=== PATIENT | male | born 1950 | race African-American/Black ===

== ENCOUNTER 2018-04-30 09:04 | Observation (INO) ==
[2018-04-30] MEDS ORDERED: Morphine Inj 4 MG/ML Vial IV.PUSH ONE ×2 (09:47→13:06)
--- NOTE | 2018-04-30 09:49 | ED ---
HPI General Chief Complaint: Chest Pain Stated Complaint: Chest Pain Time Seen by Provider: 04/30/18 09:47 Source: patient Mode of arrival: ambulatory Limitations: no limitations History of Present Illness HPI narrative: Patient comes in complaining of a 3-hour onset of chest pressure substernal radiating towards his left arm and left jaw, originally a 6 out of 10 , currently a [address] bingham is pcp wastewater manager is dr morales patient had ascenting aneurysm and aortic valve replacement done at [facility] Related Data Home Medications Medication Instructions Recorded Confirmed alprazolam 0.25 mg PO BID PRN 02/14/18 04/30/18 amlodipine 5 mg PO BID 02/14/18 04/30/18 aspirin 81 mg PO DAILY 02/14/18 04/30/18 cholecalciferol (vitamin D3) 1,000 unit PO DAILY 02/14/18 04/30/18 [Vitamin D3] olmesartan 40 mg PO DAILY 02/14/18 04/30/18 potassium chloride 20 meq PO DAILY 02/14/18 04/30/18 escitalopram oxalate [Lexapro] 5 mg PO DAILY 04/30/18 04/30/18 Allergies Allergy/AdvReac Type Severity Reaction Status Date / Time penicillin G Allergy Severe Rash Unverified 02/14/18 20:07 Beta-Blockers Allergy Bradycardia Verified 04/30/18 09:47 (Beta-Adrenergic Bloc sulfamethoxazole Allergy Rash Verified 02/14/18 20:07 [From Bactrim] trimethoprim [From Bactrim] Allergy Rash Verified 02/14/18 20:07 Review of Systems ROS: all other systems reviewed are negative [facility] Medical History Medical History Ascending aortic aneurysm (Acute) Hypertension (Acute) Surgical History Surgical History History of aortic valve replacement (Acute) History of prior ablation treatment (Acute) Social History Social History Substance History: No History of Abuse Second Hand Smoke Exposure: No Smoking Status: Never smoker How Often Do You Have a Drink Containing Alcohol: 2 to 4 times a month Recent Travel in [facility] within the Last 8 Weeks: No Recent Out of Country Travel within the Last 8 Weeks: No Immunization History Tetanus Immunization: Unsure Exam Narrative Exam Narrative: GENERAL: Elderly -[place] male in no apparent distress. SKIN: Warm and dry. HEAD: Atraumatic. Normocephalic. EYES: Pupils equal and round. No scleral icterus. No injection or drainage. ENT: No nasal bleeding or discharge. Mucous membranes pink and moist. NECK: Trachea midline. No JVD. CARDIOVASCULAR: Regular rate and rhythm. no rubs or gallops RESPIRATORY: No accessory muscle use. Clear to auscultation. Breath sounds equal bilaterally. GASTROINTESTINAL: Abdomen soft, non-tender, nondistended. No rebound or guarding MUSCULOSKELETAL: Extremities without clubbing, cyanosis, or edema. No obvious deformities. NEUROLOGICAL: Awake and alert. No obvious cranial nerve deficits. Motor grossly within normal limits. Five out of 5 muscle strength in the arms and legs. Normal speech. PSYCHIATRIC: Appropriate mood and affect; insight and judgment normal. Course Initial Documented Vital Signs Temperature 98.4 F 04/30/18 09:25 Pulse Rate 71 04/30/18 09:25 Respiratory Rate 16 04/30/18 09:25 Blood Pressure 185/90 H 04/30/18 09:25 Pulse Oximetry 96 04/30/18 09:25 Last Documented Vital Signs Temperature 98.2 F 05/01/18 08:00 Pulse Rate 57 L 05/01/18 08:00 Respiratory Rate 18 05/01/18 08:00 Blood Pressure 158/82 H 05/01/18 08:00 Pulse Oximetry 95 05/01/18 08:00 Medical Decision Making MDM Narrative Medical decision making narrative: CBC does not show any evidence of any anemia or leukocytosis or left shift. There is mild transient thrombocytopenia 129,000 Coagulation profile is within normal limits Electrolytes are within normal limits. Normal kidney liver and pancreatic functions First set of cardiac enzymes negative, normal beta natruretic peptide UA is negative for UTI Medical Screen Exam Complete: Yes Emergency Medical Condition: Yes Lab Data Lab results reviewed: Yes I reviewed the patient's lab results. Result diagrams: 04/30/18 10:00 04/30/18 10:00 Lab Results 04/30/18 04/30/18 04/30/18 Range/Units 10:00 10:00 10:00 WBC 3.6 L (4.0-11.0) th/mm3 RBC 4.47 L (4.50-5.90) mil/mm3 Hgb 13.8 (13.0-17.0) gm/dL Hct 40.4 (39.0-51.0) % MCV 90.4 (80.0-100.0) fL MCH 30.9 (27.0-34.0) pg MCHC 34.1 (32.0-36.0) % RDW 13.8 (11.6-17.2) % Plt Count 129 L (150-450) th/mm3 MPV 8.5 (7.0-11.0) fL Neut % (Auto) 28.1 (16.0-70.0) % Lymph % (Auto) 60.2 H (9.0-44.0) % Amelia % (Auto) 5.9 (0.0-8.0) % Eos % (Auto) 5.3 H (0.0-4.0) % Baso % (Auto) 0.5 (0.0-2.0) % Neut # (Auto) 1.0 L (1.8-7.7) th/mm3 Lymph # (Auto) 2.1 (1.0-4.8) th/mm3 Amelia # (Auto) 0.2 (0.0-0.9) th/mm3 Eos # (Auto) 0.2 (0.0-0.4) th/mm3 Baso # (Auto) 0.0 (0.0-0.2) th/mm3 WBC Differential . Differential Comment Auto diff final PT 10.3 (9.8-11.6) sec INR 1.0 Ratio APTT 28.9 (23.4-31.7) sec Sodium 142 (136-145) meq/L Potassium 3.7 (3.5-5.1) meq/L Chloride 108 H (98-107) meq/L Carbon Dioxide 28.7 (21.0-32.0) meq/L Anion Gap 5 (5-15) meq/L BUN 16 (7-18) mg/dL Creatinine 0.85 (0.60-1.30) mg/dL Estimated GFR Greater than 89 (>89) mL/min Random Glucose 95 (74-106) mg/dL Calcium 8.5 (8.5-10.1) mg/dL Total Bilirubin 0.6 (0.2-1.0) mg/dL AST 18 (15-37) U/L ALT 20 (12-78) U/L Alkaline Phosphatase 62 (45-117) U/L Total Creatine Kinase 117 (39-308) U/L CK-MB (CK-2) 1.4 (0.5-3.6) ng/mL Troponin I Less than 0.02 L (0.02-0.05) ng/mL B-Natriuretic Peptide (0-100) pg/mL Total Protein 8.2 (6.4-8.2) g/dL Albumin 4.3 (3.4-5.0) g/dL Lipase 141 (73-393) U/L Urine Color (Yellw/Straw) Urine Clarity (Clear) Urine pH (5.0-8.5) Ur Specific [place] (1.002-1.035) Urine Protein (Neg-Trace) mg/dL Urine Glucose (UA) (Negative) mg/dL Urine Ketones (Negative) mg/dL Urine Occult Blood (Negative) Urine Nitrate (Negative) Urine Bilirubin (Negative) Urine Urobilinogen (Less than 2) mg/dL Ur Leukocyte Esterase (Negative) Urine RBC (0-3) /hpf Urine WBC (0-5) /hpf Micro UA Comment Ur Microscopic Review Urine Culture Comments 04/30/18 04/30/18 04/30/18 Range/Units 10:00 10:00 14:27 WBC (4.0-11.0) th/mm3 RBC (4.50-5.90) mil/mm3 Hgb (13.0-17.0) gm/dL Hct (39.0-51.0) % MCV (80.0-100.0) fL MCH (27.0-34.0) pg MCHC (32.0-36.0) % RDW (11.6-17.2) % Plt Count (150-450) th/mm3 MPV (7.0-11.0) fL Neut % (Auto) (16.0-70.0) % Lymph % (Auto) (9.0-44.0) % Amelia % (Auto) (0.0-8.0) % Eos % (Auto) (0.0-4.0) % Baso % (Auto) (0.0-2.0) % Neut # (Auto) (1.8-7.7) th/mm3 Lymph # (Auto) (1.0-4.8) th/mm3 Amelia # (Auto) (0.0-0.9) th/mm3 Eos # (Auto) (0.0-0.4) th/mm3 Baso # (Auto) (0.0-0.2) th/mm3 WBC Differential Differential Comment PT (9.8-11.6) sec INR Ratio APTT (23.4-31.7) sec Sodium (136-145) meq/L Potassium (3.5-5.1) meq/L Chloride (98-107) meq/L Carbon Dioxide (21.0-32.0) meq/L Anion Gap (5-15) meq/L BUN (7-18) mg/dL Creatinine (0.60-1.30) mg/dL Estimated GFR (>89) mL/min Random Glucose (74-106) mg/dL Calcium (8.5-10.1) mg/dL Total Bilirubin (0.2-1.0) mg/dL AST (15-37) U/L ALT (12-78) U/L Alkaline Phosphatase (45-117) U/L Total Creatine Kinase 96 (39-308) U/L CK-MB (CK-2) (0.5-3.6) ng/mL Troponin I Less than 0.02 L (0.02-0.05) ng/mL B-Natriuretic Peptide 64 (0-100) pg/mL Total Protein (6.4-8.2) g/dL Albumin (3.4-5.0) g/dL Lipase (73-393) U/L Urine Color Yellow (Yellw/Straw) Urine Clarity Clear (Clear) Urine pH 7.0 (5.0-8.5) Ur Specific [place] 1.009 (1.002-1.035) Urine Protein Negative (Neg-Trace) mg/dL Urine Glucose (UA) 50 (Negative) mg/dL Urine Ketones Negative (Negative) mg/dL Urine Occult Blood Negative (Negative) Urine Nitrate Negative (Negative) Urine Bilirubin Negative (Negative) Urine Urobilinogen Less than 2 (Less than 2) mg/dL Ur Leukocyte Esterase Negative (Negative) Urine RBC 2 (0-3) /hpf Urine WBC 1 (0-5) /hpf Micro UA Comment Culture not ind Ur Microscopic Review Not Reportable Urine Culture Comments Culture not ind 04/30/18 Range/Units 17:49 WBC (4.0-11.0) th/mm3 RBC (4.50-5.90) mil/mm3 Hgb (13.0-17.0) gm/dL Hct (39.0-51.0) % MCV (80.0-100.0) fL MCH (27.0-34.0) pg MCHC (32.0-36.0) % RDW (11.6-17.2) % Plt Count (150-450) th/mm3 MPV (7.0-11.0) fL Neut % (Auto) (16.0-70.0) % Lymph % (Auto) (9.0-44.0) % Amelia % (Auto) (0.0-8.0) % Eos % (Auto) (0.0-4.0) % Baso % (Auto) (0.0-2.0) % Neut # (Auto) (1.8-7.7) th/mm3 Lymph # (Auto) (1.0-4.8) th/mm3 Amelia # (Auto) (0.0-0.9) th/mm3 Eos # (Auto) (0.0-0.4) th/mm3 Baso # (Auto) (0.0-0.2) th/mm3 WBC Differential Differential Comment PT (9.8-11.6) sec INR Ratio APTT (23.4-31.7) sec Sodium (136-145) meq/L Potassium (3.5-5.1) meq/L Chloride (98-107) meq/L Carbon Dioxide (21.0-32.0) meq/L Anion Gap (5-15) meq/L BUN (7-18) mg/dL Creatinine (0.60-1.30) mg/dL Estimated GFR (>89) mL/min Random Glucose (74-106) mg/dL Calcium (8.5-10.1) mg/dL Total Bilirubin (0.2-1.0) mg/dL AST (15-37) U/L ALT (12-78) U/L Alkaline Phosphatase (45-117) U/L Total Creatine Kinase 94 (39-308) U/L CK-MB (CK-2) (0.5-3.6) ng/mL Troponin I Less than 0.02 L (0.02-0.05) ng/mL B-Natriuretic Peptide (0-100) pg/mL Total Protein (6.4-8.2) g/dL Albumin (3.4-5.0) g/dL Lipase (73-393) U/L Urine Color (Yellw/Straw) Urine Clarity (Clear) Urine pH (5.0-8.5) Ur Specific [place] (1.002-1.035) Urine Protein (Neg-Trace) mg/dL Urine Glucose (UA) (Negative) mg/dL Urine Ketones (Negative) mg/dL Urine Occult Blood (Negative) Urine Nitrate (Negative) Urine Bilirubin (Negative) Urine Urobilinogen (Less than 2) mg/dL Ur Leukocyte Esterase (Negative) Urine RBC (0-3) /hpf Urine WBC (0-5) /hpf Micro UA Comment Ur Microscopic Review Urine Culture Comments Imaging Data Attestation: I personally reviewed and interpreted this imaging study as follows : Radiologist's impression: Chest X-Ray 04/30/18 09:47 CONCLUSION: 1. Cardiomegaly. 2. Minimal bibasilar atelectasis/or mild infiltrates. Myocardial Perfusion Scan Nuc Med 05/01/18 00:00 CONCLUSION: 1. Septal hypokinesis and left ventricular ejection fraction calculated at 44%. 2. No fixed or reversible defects to suggest infarct or ischemia. Discharge Plan Discharge Disposition Patient Disposition: ED Admit(ED Internal Use Only) Discharge Condition Condition: Stable Discharge Order Discharge Orders: Discharge Order (Routine); Ordered 05/01/18 Ordered By: Jewels Fonseca ED Use Only Admit Order (Routine); Ordered 04/30/18 Ordered By: Satish Randall Discharge Details Diagnosis: Chest pain, rule out acute myocardial infarction Physicians Team ED Provider: Satish Randall Primary Care Provider: Nicholas Bingham Attending Provider: Salud Torres ED Status: Left Department Discharge Information Discharge Date/Time: 04/30/18 16:01
[2018-04-30 10:23] LABS: Baso % (Auto) 0.5 % (0.0-2.0); Eos # (Auto) 0.2 th/mm3 (0.0-0.4); Eos % (Auto) 5.3 % (0.0-4.0); Hematocrit 40.4 % (39.0-51.0); Hemoglobin 13.8 gm/dL (13.0-17.0); Lymph # (Auto) 2.1 th/mm3 (1.0-4.8); Lymph % (Auto) 60.2 % (9.0-44.0); Mean Corpuscular HGB Conc 34.1 % (32.0-36.0); Mean Corpuscular Hemoglobin 30.9 pg (27.0-34.0); Mean Corpuscular Volume 90.4 fL (80.0-100.0); Mean Platelet Volume 8.5 fL (7.0-11.0); Mono # (Auto) 0.2 th/mm3 (0.0-0.9); Mono % (Auto) 5.9 % (0.0-8.0); Neut % (Auto) 28.1 % (16.0-70.0); Platelet Count 129 th/mm3 (150-450); Red Blood Count 4.47 mil/mm3 (4.50-5.90); Red Cell Distribution Width 13.8 % (11.6-17.2); White Blood Count 3.6 th/mm3 (4.0-11.0)
[2018-04-30 10:32] LABS: Activated Partial Thrombo Time 28.9 sec (23.4-31.7); Prothrombin Time 10.3 sec (9.8-11.6)
--- NOTE | 2018-04-30 10:32 | XR ---
EXAM DATE: 04/30/2018 10:22 AM EST AGE/SEX: 67 years / Male INDICATIONS: Chest pain x 3 days. CLINICAL DATA: This is the patient's initial encounter. Patient reports that signs and symptoms have been present for 3 days and indicates a pain score of 3/10. MEDICAL/SURGICAL HISTORY: . Hypertension. Ascending aortic aneurysm. . Aortic valve replaceme nt. [place] [facility] [place]. . FINDINGS: The heart is enlarged. Median sternotomy wires are noted status post cardiac surgery. Pulmonary vascu lar pattern is normal. Minimal bibasilar atelectasis and/or mild infiltrates are noted. CONCLUSION: 1. Cardiomegaly. 2. Minimal bibasilar atelectasis/or mild infiltrates. Electronically signed by: Cb Barber MD Board Certified Radiologist 04/30/2018 10:31 AM EST
[2018-04-30 10:38] LABS: Bilirubin,Urine Negative (Negative); Clarity,Urine Clear (Clear); Color,Urine Yellow (Yellw/Straw); Glucose,Urine (UA) 50 mg/dL (Negative); Leukocyte Esterase,Urine Negative (Negative); Nitrite,Urine Negative (Negative); Specific Gravity,Urine 1.009 (1.002-1.035)
[2018-04-30 10:47] LABS: Alanine Aminotransferase 20 U/L (12-78); Albumin 4.3 g/dL (3.4-5.0); Anion Gap 5 meq/L (5-15); Aspartate Aminotransferase 18 U/L (15-37); Blood Urea Nitrogen 16 mg/dL (7-18); Calcium 8.5 mg/dL (8.5-10.1); Carbon Dioxide 28.7 meq/L (21.0-32.0); Chloride 108 meq/L (98-107); Glomerular Filtration Rate Greater Than 89 mL/min (>89); Glucose,Random 95 mg/dL (74-106); Lipase 141 U/L (73-393); Potassium 3.7 meq/L (3.5-5.1); Sodium 142 meq/L (136-145)
[2018-04-30 10:51] LABS: Alkaline Phosphatase 62 U/L (45-117); Creatine Kinase 117 U/L (39-308); Total Protein 8.2 g/dL (6.4-8.2)
[2018-04-30 11:03] LABS: Creatine Kinase MB 1.4 ng/mL (0.5-3.6)
[2018-04-30] MEDS ORDERED: ALPRAZolam 0.25 MG Tablet PO PRN (14:12)
[2018-04-30] MEDS ORDERED: Acetaminophen 500 MG Tablet PO PRN (14:15)
--- NOTE | 2018-04-30 14:26 | P.HPCA ---
History of Present Illness Primary Care Physician: Nicholas Bingham MD Chief Complaint: Chest pain History of Present Illness: This is a 67-year-old male with history of valvular heart disease with aortic valve replaced x2 most recently 2013, ascending aortic aneurysm repair at the same time at [facility], history of atrial relation with an ablation 2013, and hypertension that presents to ED with complaint of palpitations and chest pain. States he has been dealing with palpitations for a while. He saw his link trainer maintenance worker Dr. Ryder recently had a Holter monitor last week and he states he was told that it revealed PACs but would not medicate him at this time. He states he is continue had same type of palpitations. Will concern in this morning is that his heart rate was also elevated with it. He estimated his heart rate to be 112 this morning. He was on metoprolol a while ago but had been discontinued secondary to bradycardia. Patient also states that over the last 3 days he has had constant chest discomfort on the left side rating down his left arm. Describes as a pressure. Found nothing to worsen or improve it at home. States he was given morphine in the ER which has since resolved his discomfort and has not recurred. He walks generally almost on a daily basis, he did not walk today. He walked yesterday and did not worsen his discomforts. Denies associated shortness of breath, nausea, or diaphoresis. He states he has had a couple heart catheterizations. First was in 2004 when his aortic valve was replaced with a mechanical valve. Second time was in 2013, states both times he was told he had no coronary artery disease. He cannot recall having any recent stress testing. History of atrial fibrillation with an ablation December [address] Willson, valvular heart disease with aortic valve replacement 2004 as well as 2013, ascending aortic aneurysm repair in 2013, hypertension. Denies hyperlipidemia, diabetes, and known CAD. Denies family history of CAD. Lifetime non-smoker. 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 HEENT: Patient denies headache, sore throat, difficulty swallowing. Cardiovascular: Has the chest discomfort as mentioned above. Had sensation heart beating rapidly and felt as if he had an irregular pulse. States that he checked his heart rate was approximately 112. No syncope. Denies diaphoresis. Respiratory: Denies shortness of breath or inspirational chest discomfort. Denies coughing wheezing or hemoptysis. GI: Patient denies nausea, vomiting, diarrhea, abdominal pain, bloody stools. Musculoskeletal: Patient denies joint pain or edema. Denies calf pain or edema. Neurovascular: Patient denies numbness, tingling, weakness in extremities. Denies headache. Endocrine: Denies polyuria and polydipsia. Hematologic: Denies easy bruising. Skin: Denies rash or itching. PMFSH - History History Provided By: Patient - Medical History Medical History: Medical History (Last Reviewed 04/30/18 @ 12:01 by Satish Randall) Ascending aortic aneurysm Hypertension - Surgical History Surgical History: Surgical History (Last Reviewed 04/30/18 @ 12:01 by Satish Randall) History of aortic valve replacement History of prior ablation treatment - Tobacco History Second Hand Smoke Exposure: No Tobacco Use In Past 30 Days: No Smoking Status: Never smoker - Alcohol History How Often Do You Have a Drink Containing Alcohol: 2 to 4 times a month - Substance Use History Substance History: No History of Abuse - Travel History Recent Travel in the [place] Within the Last 8 Weeks: No Recent Travel Out of the Country Within the Last 8 Weeks: No - Immunization History Tetanus Immunization: Unsure Medications and Allergies Active Medications: Active Medications Alprazolam (Xanax) 0.25 mg PO Q8H PRN PRN Reason: ANXIETY Aspirin (Aspirin) 325 mg PO DAILY [facility] Non-Formulary Medication (Olmesartan [Olmesartan]) 40 mg PO DAILY [facility] Non-Formulary Medication (Potassium Chloride [Potassium Chloride]) 20 meq PO DAILY [facility] Non-Formulary Medication (Escitalopram Oxalate [Lexapro]) 5 mg PO DAILY [facility] Ondansetron HCl (Zofran Inj) 4 mg IV.PUSH Q6H PRN PRN Reason: NAUSEA Pantoprazole Sodium (Protonix) 40 mg PO DAILY [facility] Sodium Chloride (Ns Flush) 2 ml IV.FLUSH UNSCH PRN PRN Reason: FLUSH AFTER USING IV ACCESS Sodium Chloride (Ns Flush) 2 ml IV.FLUSH BID [facility] Sodium Chloride (Ns Flush) 2 ml IV.FLUSH PRN PRN PRN Reason: FLUSH AFTER USING IV ACCESS Allergies Allergy/AdvReac Type Severity Reaction Status Date / Time penicillin G Allergy Severe Rash Unverified 02/14/18 20:07 Beta-Blockers Allergy Bradycardia Verified 04/30/18 09:47 (Beta-Adrenergic Bloc sulfamethoxazole Allergy Rash Verified 02/14/18 20:07 [From Bactrim] trimethoprim [From Bactrim] Allergy Rash Verified 02/14/18 20:07 Home Medications Medication Instructions Recorded Confirmed Type alprazolam 0.25 mg PO BID PRN 02/14/18 04/30/18 History amlodipine 10 mg PO DAILY 02/14/18 04/30/18 History aspirin 81 mg PO DAILY 02/14/18 04/30/18 History cholecalciferol (vitamin D3) 1,000 unit PO DAILY 02/14/18 04/30/18 History [Vitamin D3] olmesartan 40 mg PO DAILY 02/14/18 04/30/18 History potassium chloride 20 meq PO DAILY 02/14/18 04/30/18 History escitalopram oxalate [Lexapro] 5 mg PO DAILY 04/30/18 04/30/18 History Exam Vital signs: Vital Signs 04/30/18 09:25 04/30/18 09:27 04/30/18 10:15 Temperature 98.4 F Pulse Rate 71 60 54 L Respiratory Rate 16 18 18 Blood Pressure 185/90 H 165/92 H 159/92 H Pulse Oximetry 96 99 98 Intake & Output 04/29/18 04/30/18 04/30/18 18:59 06:59 18:59 Weight 87.09 kg Narrative: GENERAL: This is a well-nourished, well-developed patient, in no apparent distress. Patient speaks in clear complete sentences. Patient is pleasant. HEENT: Head is atraumatic and normocephalic. Neck is supple without lymphadenopathy and trachea is midline. No JVD or carotid bruits. CARDIOVASCULAR: Systolic murmur right sternal border radiating to the neck. Regular rate and rhythm without gallops, or rubs. RESPIRATORY: Clear to auscultation. Breath sounds equal bilaterally. No wheezes , rales, or rhonchi. Chest wall is nontender. No use of accessory muscles. GASTROINTESTINAL: Abdomen is nontender, nondistended. Abdomen soft. No obvious pulsatile mass or bruit. No CVA tenderness. Strong femoral pulses bilaterally. Normal bowel sounds in all quadrants. MUSCULOSKELETAL: Patient is moving upper and lower extremities freely. No calf tenderness or edema, no Homans sign. Strong pulses in upper and lower extremities. NEUROLOGICAL: Patient is alert and oriented. Cranial nerves 2-12 are grossly intact. No focal deficits and speech is clear. SKIN: No rash and turgor is normal. Results 04/30/18 10:00 04/30/18 10:00 Cardiac Enzymes 04/30/18 04/30/18 Range/Units 10:00 10:00 AST 18 (15-37) U/L CK-MB (CK-2) 1.4 (0.5-3.6) ng/mL Troponin I Less than 0.02 L (0.02-0.05) ng/mL B-Natriuretic Peptide 64 (0-100) pg/mL Coagulation 04/30/18 04/30/18 Range/Units 10:00 10:00 PT 10.3 (9.8-11.6) sec APTT 28.9 (23.4-31.7) sec B-Natriuretic Peptide 64 (0-100) pg/mL CBC 04/30/18 Range/Units 10:00 WBC 3.6 L (4.0-11.0) th/mm3 RBC 4.47 L (4.50-5.90) mil/mm3 Hgb 13.8 (13.0-17.0) gm/dL Hct 40.4 (39.0-51.0) % Plt Count 129 L (150-450) th/mm3 Neut # (Auto) 1.0 L (1.8-7.7) th/mm3 Lymph # (Auto) 2.1 (1.0-4.8) th/mm3 [place] # (Auto) 0.2 (0.0-0.9) th/mm3 Eos # (Auto) 0.2 (0.0-0.4) th/mm3 Baso # (Auto) 0.0 (0.0-0.2) th/mm3 Comprehensive Metabolic Panel 04/30/18 Range/Units 10:00 Sodium 142 (136-145) meq/L Potassium 3.7 (3.5-5.1) meq/L Chloride 108 H (98-107) meq/L Carbon Dioxide 28.7 (21.0-32.0) meq/L BUN 16 (7-18) mg/dL Creatinine 0.85 (0.60-1.30) mg/dL Calcium 8.5 (8.5-10.1) mg/dL AST 18 (15-37) U/L ALT 20 (12-78) U/L Alkaline Phosphatase 62 (45-117) U/L Total Protein 8.2 (6.4-8.2) g/dL Albumin 4.3 (3.4-5.0) g/dL Intake and Output 04/29/18 04/30/18 04/30/18 22:59 06:59 14:59 Other: Weight 87.09 kg Patient Weight 05/01/18 06:59 Weight 87.09 kg - Imaging and Cardiology Imaging: Impressions Chest X-Ray 04/30/18 09:47 CONCLUSION: 1. Cardiomegaly. 2. Minimal bibasilar atelectasis/or mild infiltrates. EKG interpretations - EKG EKG shows: sinus rhythm (Initial EKG sinus rhythm with PVCs. Right bundle branch block.) Caprini VTE Risk Assessment Caprini VTE Risk Assessment: Moderate/High Risk (score >= 2) Caprini Risk Assessment Model: Point Value = 1 Point Value = 2 Point Value = 3 Point Value = 5 Age 41-60 Minor surgery BMI > 25 kg/m2 Swollen legs Varicose veins or History of unexplained or recurrent spontaneous Oral contraceptives or hormone replacement Sepsis (< 1 month) Serious lung disease, including pneumonia (< 1 month) Abnormal pulmonary function Acute myocardial infarction Congestive heart failure (< 1 month) History of inflammatory bowel disease Medical patient at bed rest Age 61-74 Arthroscopic surgery Major open surgery (> 45 min) Laparoscopic surgery (> 45 min) Malignancy Confined to bed (> 72 hours) Immobilizing plaster cast Central venous access Age >= 75 History of VTE Family history of VTE Factor V Leiden Prothrombin [id number] Lupus anticoagulant Anticardiolipin antibodies Elevated serum homocysteine Heparin-induced thrombocytopenia Other congenital or acquired thrombophilia Stroke (< 1 month) Elective arthroplasty Hip, pelvis, or leg fracture Acute spinal cord injury (< 1 month) Prophylaxis Regimen: Total Risk Factor Score Risk Level Prophylaxis Regimen 0-1 Low Early ambulation 2 Moderate Order ONE of the following: *Sequential Compression Device (SCD) *Heparin 5000 units SQ BID 3-4 Higher Order ONE of the following medications: *Heparin 5000 units SQ TID *Enoxaparin/Lovenox 40 mg SQ daily (WT < 150 kg, CrCl > 30 mL/min) *Enoxaparin/Lovenox 30 mg SQ daily (WT < 150 kg, CrCl > 10-29 mL/min) *Enoxaparin/Lovenox 30 mg SQ BID (WT < 150 kg, CrCl > 30 mL/min) AND/OR *Sequential Compression Device (SCD) 5 or more Highest Order ONE of the following medications: *Heparin 5000 units SQ TID (Preferred with Epidurals) *Enoxaparin/Lovenox 40 mg SQ daily (WT < 150 kg, CrCl > 30 mL/min) *Enoxaparin/Lovenox 30 mg SQ daily (WT < 150 kg, CrCl > 10-29 mL/min) *Enoxaparin/Lovenox 30 mg SQ BID (WT < 150 kg, CrCl > 30 mL/min) AND *Sequential Compression Device (SCD) Assessment and Plan - Assessment (1) Chest pain Code(s): R07.9 - Chest pain, unspecified Status: Acute (2) Hypertension Code(s): I10 - Essential (primary) hypertension Status: Acute (3) History of aortic valve replacement Code(s): Z95.2 - Presence of prosthetic heart valve Status: Acute (4) History of atrial fibrillation Code(s): Z86.79 - Personal history of other diseases of the circulatory system Status: Acute (5) 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 He will be seen by Dr. Torres of cardiology in the chest pain center. I discussed this patient with his link trainer maintenance worker Dr. Ryder. Requested stress testing while he is here. He will have a Lexiscan in the morning, he will be discharged home if his stress test is nonischemic with instructions to follow-up with his link trainer maintenance worker and PCP. * Hypertension: Continue medication. * History of aortic valve placement: Follow-up with his link trainer maintenance worker. * Palpitations: Follow-up with his link trainer maintenance worker. * History of ascending aortic aneurysm repair: Follow-up with his link trainer maintenance worker. Patient is stable at this time. He is agreeable to this plan.
[2018-04-30 15:27] LABS: Creatine Kinase 96 U/L (39-308)
--- NOTE | 2018-04-30 16:38 | ECG ---
Date Performed: 04/30/2018 Time Performed: 09:37:11 PTAGE: 67 years EKG: Sinus rhythm WITH FREQUENT SUPRAVENTRICULAR PREMATURE COMPLEXES RIGHT BUNDLE BRANCH BLOCK VOLTAGE CRITERIA FOR LV H ABNORMAL ECG PREVIOUS TRACING : 02/14/2018 20.21 Since the previous tracing, no significant change noted DOCTOR: Lorenzo Toledo Interpretating Date/Time 04/30/2018 16:38:00
[2018-04-30 18:38] LABS: Creatine Kinase 94 U/L (39-308)
[2018-04-30 20:34] VITALS: RESP 18
[2018-04-30] MEDS ORDERED: ALPRAZolam 0.25 MG Tablet PO ONE (22:00)
[2018-04-30] MEDS ORDERED: amLODIPine 5 MG Tablet PO ONE (22:00)
[2018-05-01 08:54] VITALS: BP 158/82; PULSE 57; TEMP 98.2; O2SAT 95
[2018-05-01] MEDS ORDERED: Escitalopram 10 MG Tablet PO SCH (09:00)
[2018-05-01] MEDS ORDERED: Aspirin 325 MG Tablet PO SCH (09:00)
--- NOTE | 2018-05-01 09:04 | P.PNCA ---
Subjective Interval history: No further chest pain. Continues to report feelings of intermittent PACs. Medications and Allergies Active Medications: Active Medications Acetaminophen (Tylenol) 500 mg PO Q6H PRN PRN Reason: pain scale 1-5 Hydrocodone Bitart/Acetaminophen ([place] 7.5/325) 1 tab PO Q6H PRN PRN Reason: pain scale 6-10 Albuterol (Duoneb Neb (Prn)) 1 ampul NEB Q4HR NEB PRN PRN Reason: SHORTNESS OF BREATH/WHEEZING Alprazolam (Xanax) 0.25 mg PO Q8H PRN PRN Reason: ANXIETY Aspirin (Aspirin) 325 mg PO DAILY [facility] Last Admin: 05/01/18 08:29 Dose: 325 mg Clonidine HCl (Catapres) 0.1 mg PO Q6H PRN PRN Reason: SBP >165 OR DBP > 110 Last Admin: 04/30/18 16:35 Dose: 0.1 mg Escitalopram Oxalate (Lexapro) 5 mg PO DAILY [facility] Last Admin: 05/01/18 08:28 Dose: 5 mg Losartan Potassium (Cozaar) 100 mg PO DAILY [facility] Last Admin: 05/01/18 08:28 Dose: 100 mg Miscellaneous (Pill Splitter) 1 each OTHER UNSCH PRN PRN Reason: SEE LABEL COMMENTS Ondansetron HCl (Zofran Inj) 4 mg IV.PUSH Q6H PRN PRN Reason: NAUSEA Pantoprazole Sodium (Protonix) 40 mg PO DAILY [facility] Last Admin: 05/01/18 08:29 Dose: 40 mg Potassium Chloride (K-Dur) 20 meq PO DAILY [facility] Last Admin: 05/01/18 08:29 Dose: 20 meq Sodium Chloride (Ns Flush) 2 ml IV.FLUSH BID [facility] Last Admin: 05/01/18 08:29 Dose: 2 ml Sodium Chloride (Ns Flush) 2 ml IV.FLUSH PRN PRN PRN Reason: FLUSH AFTER USING IV ACCESS Allergies Allergy/AdvReac Type Severity Reaction Status Date / Time penicillin G Allergy Severe Rash Unverified 02/14/18 20:07 Beta-Blockers Allergy Bradycardia Verified 04/30/18 09:47 (Beta-Adrenergic Bloc sulfamethoxazole Allergy Rash Verified 02/14/18 20:07 [From Bactrim] trimethoprim [From Bactrim] Allergy Rash Verified 02/14/18 20:07 Home Medications Medication Instructions Recorded Confirmed Type alprazolam 0.25 mg PO BID PRN 02/14/18 04/30/18 History amlodipine 5 mg PO BID 02/14/18 04/30/18 History aspirin 81 mg PO DAILY 02/14/18 04/30/18 History cholecalciferol (vitamin D3) 1,000 unit PO DAILY 02/14/18 04/30/18 History [Vitamin D3] olmesartan 40 mg PO DAILY 02/14/18 04/30/18 History potassium chloride 20 meq PO DAILY 02/14/18 04/30/18 History escitalopram oxalate [Lexapro] 5 mg PO DAILY 04/30/18 04/30/18 History Physical Exam Vital signs: Vital Signs 04/30/18 09:25 04/30/18 09:27 04/30/18 10:15 Temperature 98.4 F Pulse Rate 71 60 54 L Respiratory Rate 16 18 18 Blood Pressure 185/90 H 165/92 H 159/92 H Pulse Oximetry 96 99 98 04/30/18 14:36 04/30/18 15:49 04/30/18 20:00 Temperature 97.7 F 98.0 F Pulse Rate 79 53 L 51 L Respiratory Rate 18 16 18 Blood Pressure 156/97 H 170/99 H 144/86 H Pulse Oximetry 97 98 96 05/01/18 00:00 05/01/18 04:00 05/01/18 08:00 Temperature 97.9 F 98.1 F 98.2 F Pulse Rate 45 L 49 L 57 L Respiratory Rate 18 18 18 Blood Pressure 131/77 137/72 158/82 H Pulse Oximetry 97 96 95 Intake & Output 04/30/18 05/01/18 05/01/18 18:59 06:59 18:59 Weight 87.22 kg Other: # Voids 2 Date of Last Bowel Movement 04/29/18 Weight On Admission 87.22 kg - Constitutional no acute distress - Routine HEENT Exam Head: Present: normocephalic, atraumatic - Routine Respiratory Exam Present: CTA bilaterally - Routine Cardiovascular Exam Present: RRR. Absent: murmur, gallop, rubs - Routine Abdominal Exam Present: soft, normoactive bowel sounds Results 04/30/18 10:00 04/30/18 10:00 Cardiac Enzymes 04/30/18 04/30/1818 Range/Units 10:00 10:00 14:27 AST 18 (15-37) U/L CK-MB (CK-2) 1.4 (0.5-3.6) ng/mL Troponin I Less than 0.02 L Less than 0.02 L (0.02-0.05) ng/mL B-Natriuretic Peptide 64 (0-100) pg/mL 04/30/18 Range/Units 17:49 AST (15-37) U/L CK-MB (CK-2) (0.5-3.6) ng/mL Troponin I Less than 0.02 L (0.02-0.05) ng/mL B-Natriuretic Peptide (0-100) pg/mL Coagulation 04/30/18 04/30/18 Range/Units 10:00 10:00 PT 10.3 (9.8-11.6) sec APTT 28.9 (23.4-31.7) sec B-Natriuretic Peptide 64 (0-100) pg/mL CBC 04/30/18 Range/Units 10:00 WBC 3.6 L (4.0-11.0) th/mm3 RBC 4.47 L (4.50-5.90) mil/mm3 Hgb 13.8 (13.0-17.0) gm/dL Hct 40.4 (39.0-51.0) % Plt Count 129 L (150-450) th/mm3 Neut # (Auto) 1.0 L (1.8-7.7) th/mm3 Lymph # (Auto) 2.1 (1.0-4.8) th/mm3 [place] # (Auto) 0.2 (0.0-0.9) th/mm3 Eos # (Auto) 0.2 (0.0-0.4) th/mm3 Baso # (Auto) 0.0 (0.0-0.2) th/mm3 Comprehensive Metabolic Panel 04/30/18 Range/Units 10:00 Sodium 142 (136-145) meq/L Potassium 3.7 (3.5-5.1) meq/L Chloride 108 H (98-107) meq/L Carbon Dioxide 28.7 (21.0-32.0) meq/L BUN 16 (7-18) mg/dL Creatinine 0.85 (0.60-1.30) mg/dL Calcium 8.5 (8.5-10.1) mg/dL AST 18 (15-37) U/L ALT 20 (12-78) U/L Alkaline Phosphatase 62 (45-117) U/L Total Protein 8.2 (6.4-8.2) g/dL Albumin 4.3 (3.4-5.0) g/dL Intake and Output 04/30/18 05/01/18 05/01/18 22:59 06:59 14:59 Other: # Voids 2 Date of Last Bowel Movement 04/29/18 Weight 87.22 kg Weight On Admission 87.22 kg - Imaging and Cardiology Imaging: Impressions Chest X-Ray 04/30/18 09:47 CONCLUSION: 1. Cardiomegaly. 2. Minimal bibasilar atelectasis/or mild infiltrates. Assessment and Plan - Assessment (1) Chest pain Code(s): R07.9 - Chest pain, unspecified Status: Acute Plan: ACS ruled out with 3 sets of EKGs and cardiac enzymes. Previously seen and evaluated by Dr. Salud Torres. Patient's edge grinder machine, Dr. Ryder, notified of patient's admission yesterday who recommended chemical cardiac testing after ACS ruled out. (2) Hypertension Code(s): I10 - Essential (primary) hypertension Status: Chronic Plan: Continue amlodipine. 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 He will be seen by Dr. Torres of cardiology in the chest pain center. I discussed this patient with his edge grinder machine Dr. Ryder. Requested stress testing while he is here. He will have a Lexiscan in the morning, he will be discharged home if his stress test is nonischemic with instructions to follow-up with his edge grinder machine and PCP. * Hypertension: Continue medication. * History of aortic valve placement: Follow-up with his edge grinder machine. * Palpitations: Follow-up with his edge grinder machine. * History of ascending aortic aneurysm repair: Follow-up with his edge grinder machine. Patient is stable at this time. He is agreeable to this plan. (1) Chest pain Qualifiers: Chest pain type: unspecified Qualified Code(s): R07.9 - Chest pain, unspecified (2) Hypertension Qualifiers: Hypertension type: unspecified Qualified Code(s): I10 - Essential (primary) hypertension
[2018-05-01] MEDS ORDERED: amLODIPine 5 MG Tablet PO SCH (10:15)
[2018-05-01] MEDS ORDERED: Regadenoson Inj 0.4 MG/5 ML Syringe IV.PUSH ONE (10:57)
--- NOTE | 2018-05-01 12:09 | NM ---
EXAM DATE: 05/01/2018 12:06 PM EST AGE/SEX: 67 years / Male INDICATIONS:Angina. Atrial fibrillation Chest pain. CLINICAL DATA: This is the patient's initial encounter. Patient reports that signs and symptoms have been present for 1 day and indicates a pain score of 3/10. MEDICAL/SURGICAL HISTORY: Hypertension. Aortic aneurysm. . Aortic valve replacement. COMPARISON: No prior exams available for comparison. DOSE: 8.8 mCi Tc 99m Myoview at rest 26.2 mCi [id number] at stress 0.4 mg Lexiscan STRESS SYMPTOMS: Shortness of breath. EJECTION FRACTION: 44 % TECHNIQUE: The patient underwent pharmacologic stress with infusion of prescribed dose. Continuous ECG tracing was monitored during stress. Gated SPECT imaging was performed after stress and conventi onal SPECT imaging was performed at rest. The examination was performed on a SPECT/CT scanner, both attenuation and non-corrected datasets were reviewed. FINDINGS: Distribution: The maximum perfused segment at stress is in the lateral wall. Perfusion Study: The pattern of perfusion at stress is within normal limits. Gated Study: Septal hypokinesis is noted. The ejection fraction is calculated at 44%. RISK CATEGORY: Low (<1% Annual Motality Rate) CONCLUSION: 1. Septal hypokinesis and left ventricular ejection fraction calculated at 44%. 2. No fixed or reversible defects to suggest infarct or ischemia. Electronically signed by: Cb Barber MD Board Certified Radiologist 05/01/2018 12:08 PM EST
--- NOTE | 2018-05-01 15:04 | ECG ---
Date Performed: 04/30/2018 Time Performed: 17:56:03 PTAGE: 67 years EKG: SINUS BRADYCARDIA MARKED LEFT AXIS DEVIATION RIGHT BUNDLE BRANCH BLOCK LEFT VENTRICULAR HYP ERTROPHY AND ST-T CHANGE ABNORMAL ECG PREVIOUS TRACING : 04/30/2018 14.24 Since previous tracing, no significant change noted DOCTOR: Babak Morrison Interpretating Date/Time 05/01/2018 15:03:07
--- NOTE | 2018-05-01 15:06 | ECG ---
Date Performed: 04/30/2018 Time Performed: 14:24:24 PTAGE: 67 years EKG: SINUS BRADYCARDIA BORDERLINE LEFT AXIS DEVIATION RIGHT BUNDLE BRANCH BLOCK VOLTAGE CRITERIA FOR LVH ABNORMAL ECG PREVIOUS TRACING : 04/30/2018 09.37 Since previous tracing, no significant change noted DOCTOR: Babak Morrison Interpretating Date/Time 05/01/2018 15:04:07
--- NOTE | 2018-05-01 15:09 | TR ---
Date Performed: 05/01/2018 Time Performed: 10:50:58 DOCTOR: Babak Morrison DRUG LIST: CLINICAL HISTORY: REASON FOR TEST: REASON FOR ENDING: OBSERVATION: CONCLUSION: COMMENTS: RBBB with ST changes were present through testing without change. These findings are n on-diagnostic. Nuclear imaging is pending.
== END 2018-05-01 13:08 | disposition home or self-care (01) ==
LOC: NEDA 09:04 → NEPE 09:04 → NEPGCP 15:39
PROVIDERS: ADMIT Internal Medicine Interventional Cardiology; ATTEND Internal Medicine Interventional Cardiology